=== PATIENT | female | born 1985 | race Caucasian/White ===

== ENCOUNTER 2018-04-24 15:06 | Emergency (ER) | payer MEDICAID ==
[~2018-04-24] VITALS: Ht 157.5 cm; Wt 78.0 kg
[~2018-04-24 15:06] MED LIST: FERR27TA; PREN1TAB49
[2018-04-24 15:09] VITALS: Ht 157.5 cm; Wt 78.0 kg
[2018-04-24] MEDS ORDERED: KETOROLAC 30 MG INJ IM STA (17:21)
[2018-04-24] MEDS ORDERED: HYDROCODONE/APAP (5/325) TAB PO ONE (20:30)
--- NOTE | 2018-04-24 21:03 | ERD ---
ER Documentation Chief Complaint Chief Complaint AP SINCE YESTERDAY HPI 32-year-old female presents for abdominal pain times 2 days. She states that the pain is in the periumbilical area, rated 10 out of 10, described as sharp. She states that she is also been having fevers. She denies any nausea, vomiting, diarrhea. She does have a past medical history of C-sections. ROS All systems reviewed and are negative except as per history of present illness. Medications Home Meds Active Scripts Hydrocodone/Acetaminophen ([place] 5-325 Tablet) 1 Each Tablet, 1 EACH PO Q6H PRN for PAIN, #10 TAB Prov:DEX WILLINGHAM DO 04/24/18 Ibuprofen* (Motrin*) 600 Mg Tab, 600 MG PO Q6H PRN for PAIN AND OR ELEVATED TEMP, #30 TAB Prov:DEX WILLINGHAM DO 04/24/18 Ciprofloxacin Hcl* (Ciprofloxacin Hcl*) 500 Mg Tablet, 500 MG PO BID for uti for 7 Days, #14 TAB Prov:DEX WILLINGHAM DO 04/24/18 Reported Medications Ferrous Sulfate (Iron) 1 Tab Tablet 09/03/10 Vits W-Ca,Fe,Fa(<1MG) () 1 Tab Tablet 09/03/10 Allergies Allergies: Coded Allergies: No Known Drug Allergies (Verified Allergy, Unknown, 09/03/10) PMhx/Soc Medical and Surgical Hx: pt denies Medical Hx, pt denies Surgical Hx History of Surgery: No Anesthesia Reaction: No Hx Neurological Disorder: No Hx Respiratory Disorders: No Hx Cardiac Disorders: No Hx Psychiatric Problems: No Hx Miscellaneous Medical Probl: No Hx Alcohol Use: No Hx Substance Use: Yes (crystal meth) Hx Tobacco Use: Yes (1/2 pack a day) Smoking Status: Current every day smoker Physical Exam Vitals Vital Signs Date Temp Pulse Resp B/P (MAP) Pulse Ox O2 O2 Flow FiO2 Time Delivery Rate 04/24/18 101.2 103 20 103/52 99 Room Air 16:52 (69) 04/24/18 100.5 110 20 120/84 99 15:09 (96) Physical Exam Const: No acute distress Resp: Clear to auscultation bilaterally Cardio: Regular rate and rhythm, no murmurs Abd: Soft, non distended. Normal bowel sounds, there is mild tenderness to the periumbilical area and bilateral pelvic area, no McBurney's point tenderness, no Rivera sign, no rebound or guarding noted Skin: No petechiae or rashes Back: No midline or flank tenderness Ext: No cyanosis, or edema Neur: Awake and alert Psych: Normal Mood and Affect Results 24 hrs Laboratory Tests Test 04/24/18 17:45 04/24/18 18:21 04/24/18 18:22 White Blood Count 12.0 10^3/ul Red Blood Count 4.52 10^6/ul Hemoglobin 11.7 g/dl Hematocrit 36.8 % Mean Corpuscular Volume 81.4 fl Mean Corpuscular Hemoglobin 25.9 pg Mean Corpuscular 31.8 g/dl Hemoglobin Concent Red Cell Distribution Width 13.0 % Platelet Count 233 10^3/UL Mean Platelet Volume 9.5 fl Immature Granulocytes % 0.400 % Neutrophils % 87.4 % Lymphocytes % 5.1 % Monocytes % 6.8 % Eosinophils % 0.1 % Basophils % 0.2 % Nucleated Red Blood Cells % 0.0 /100WBC Immature Granulocytes # 0.050 10^3/ul Neutrophils # 10.5 10^3/ul Lymphocytes # 0.6 10^3/ul Monocytes # 0.8 10^3/ul Eosinophils # 0.0 10^3/ul Basophils # 0.0 10^3/ul Nucleated Red Blood Cells # 0.0 10^3/ul Sodium Level 136 mmol/L Potassium Level 4.8 mmol/L Chloride Level 96 mmol/L Carbon Dioxide Level 26 mmol/L Anion Gap 14 Blood Urea Nitrogen 9 mg/dl Creatinine 0.55 mg/dl Est Glomerular Filtrat > 60 mL/min Rate mL/min Glucose Level 117 mg/dl Calcium Level 8.9 mg/dl Total Bilirubin 0.1 mg/dl Direct Bilirubin 0.00 mg/dl Indirect Bilirubin 0.1 mg/dl Aspartate Amino 22 IU/L Transf (AST/SGOT) Alanine 31 IU/L Aminotransferase (ALT/SGPT) Alkaline Phosphatase 71 IU/L Total Protein 6.4 g/dl Albumin 3.7 g/dl Globulin 2.70 g/dl Albumin/Globulin Ratio 1.37 Lipase 42 U/L Urine Color YELLOW Urine Clarity SLIGHTLY CLOUDY Urine pH 7.0 Urine Specific [place] 1.025 Urine Ketones NEGATIVE mg/dL Urine Nitrite POSITIVE mg/dL Urine Bilirubin NEGATIVE mg/dL Urine Urobilinogen NEGATIVE mg/dL Urine Leukocyte Esterase 2+ Alejandro/ul Urine Microscopic RBC 6 /HPF Urine Microscopic WBC 27 /HPF Urine Squamous Epithelial Cells FEW /HPF Urine Bacteria FEW /HPF Urine Mucus FEW /HPF Urine Hemoglobin 1+ mg/dL Urine Glucose NEGATIVE mg/dL Urine Total Protein NEGATIVE mg/dl POC Beta HCG, Qualitative NEGATIVE Current Medications Medications Dose Sig/[place] Start Time Status Last (Trade) Ordered Route PRN Stop Time Admin Dose Reason Admin Ketorolac 30 mg ONCE STAT 04/24/18 DC 04/24/18 Tromethamine IM 17:21 18:48 (Toradol) 04/24/18 17:24 1 tab ONCE ONCE 04/24/18 DC 04/24/18 Acetaminophen PO 20:30 20:14 / 04/24/18 20:31 Hydrocodone Bitart ([place] (5/325)) Ceftriaxone 1 gm ONCE ONCE 04/24/18 DC 04/24/18 Sodium IM 21:30 21:56 (Rocephin) 04/24/18 21:31 Procedures/MDM Medical Decision Making: Differential diagnosis includes but not limited to acute gastritis, acute gastroenteritis, appendicitis, cholecystitis, pancreatitis, ovarian pathology. Patient was nontoxic appearing on physical examination. There was mild tenderness to palpation over the periumbilical and bilateral lower pelvic area. Labs: CBC showed mild anemia at 11.7 hemoglobin, mildly elevated WBC of 12 CMP showed no electrolyte abnormalities, there was normal kidney and liver function Lipase was normal Urine was negative UA was consistent with a urinary tract infection Imaging: CT abdomen pelvis without IV contrast showed an ovoid mass measuring approximately 4.6 x 3.9 cm and containing macroscopic fat and calcification consistent with a dermoid (i.e. teratoma). There is mild nonspecific surrounding fat stranding about the mass. Recommend pelvic ultrasound to exclude the possibility of associated left-sided ovarian torsion. Enlarged fatty liver. Given CT findings pelvic ultrasound was ordered pelvic ultrasound unremarkable however the recommendation was to get an endovaginal pelvic ultrasound patient advised follow-up with primary care physician for endovaginal pelvic ultrasound. ED course: Patient was given Toradol, [place], rocephin IM. Symptoms improved with treatment Patient given prescription for Motrin, [place] short course low-dose, Cipro. Patient advised to follow up with PCP in 1-2 days. Patient advised to return to ED for new or worsening symptoms. Patient stable on discharge from the ED. The patient has been prescribed [place] during this encounter. The patient has been warned about the use of narcotics. The patient should not drive or operate heavy machinery while taking this medication. The patient was also warned about the addictive properties of narcotic medications. [Narcan prescription was NOT provided given the following criteria 1. No more than 5 tablets of [place] 10 mg or 10 tablets of [place] 5 mg were prescribed. 2. Concomitant opiate and benzodiazepine prescriptions were not provided. 3. There is no obvious evidence of prior history of opiate abuse or overdose.] Disclaimer: Inadvertent spelling and grammatical errors are likely due to EHR/dictation software use and do not reflect on the overall quality of patient care. Also, please note that the electronic time recorded on this note does not necessarily reflect the actual time of the patient encounter. DEX WILLINGHAM DO Apr 24, 2018 21:03
[2018-04-24] MEDS ORDERED: CIPR500T4 PO (21:15)
[2018-04-24] MEDS ORDERED: IBUP-1542 PO (21:16)
[2018-04-24] MEDS ORDERED: HYDR-4011 PO (21:21)
[2018-04-24] MEDS ORDERED: CEFTRIAXONE 1 GM INJ IM ONE (21:30)
[2018-04-24 22:27] VITALS: BP 112/60; PULSE 99; RESP 20
== END 2018-04-24 22:30 | disposition home or self-care (01) ==
LOC: FTE 15:06
DX: R10.33 Periumbilical pain (principal); R10.2 Pelvic and perineal pain
CPT/HCPCS: 36415; 74176; 76856; 80053; 81001; 81025; 83690; 85025; 87086; 96372; J0696; J1885; Z7502; Z7610